=== PATIENT | female | born 2000 | race Caucasian/White ===

== ENCOUNTER 2024-06-04 13:41 | Emergency (ER) | payer OTHER ==
[~2024-06-04] VITALS: Ht 167.6 cm; Wt 122.5 kg
[2024-06-04 13:47] VITALS: BP_SYST 152; PULSE 85; RESP 20; TEMP 98.3; O2SAT 98
[2024-06-04] MEDS ORDERED: IBUP-1969 PO (14:37)
[2024-06-04] MEDS ORDERED: HYDR-3927 PO (14:37)
[2024-06-04] MEDS ORDERED: ALBMDI INH (14:52)
[2024-06-04 14:54] VITALS: BP_SYST 152; PULSE 85; RESP 20; TEMP 98.3; O2SAT 98
== END 2024-06-04 14:53 | disposition home or self-care (01) ==
LOC: SED 13:41
DX: S62.623A Displaced fracture of middle phalanx of left middle finger, initial encounter for closed fracture (principal); W23.0XXA Caught, crushed, jammed, or pinched between moving objects, initial encounter; Y93.89 Activity, other specified; Y92.89 Other specified places as the place of occurrence of the external cause; Y99.8 Other external cause status
CPT/HCPCS: 73140; 81025; 99283